=== PATIENT | female | born 1960 | race Caucasian/White ===

== ENCOUNTER 2017-01-30 20:37 | Emergency (ER) | payer SELFPAY ==
[2017-01-30 23:37] LABS: HEMOGLOBIN 14.2 gm/dl (12.3-15.3); RED BLOOD COUNT 4.52 M/UL (4.00-5.10); WHITE BLOOD COUNT 7.6 K/UL (4.5-11.0)
[2017-01-31 00:40] LABS: BUN/CREATININE RATIO 23 (0-10)
== END 2017-01-31 01:30 | disposition home or self-care (01) ==
LOC: ER1 20:37
PROVIDERS: Family Medicine
DX: H81.399 Other peripheral vertigo, unspecified ear (principal); F17.200 Nicotine dependence, unspecified, uncomplicated
CPT/HCPCS: 70450; 80053; 82550; 82553; 83874; 84484; 85025; 93005; 96374; 99284; J2405; J7040